=== PATIENT | female | born 1955 | race Caucasian/White ===

== ENCOUNTER 2017-01-01 06:12 | Day surgery (SDC) | payer OTHER ==
[2016-12-10 10:01] VITALS: Ht 160 cm; Wt 87.0 kg
--- NOTE | 2016-12-10 12:14 | PREOPHP ---
DATE OF ADMISSION: 12/11/2016 DATE OF ADMISSION: 12/11/2016 HISTORY OF PRESENT ILLNESS: This 61-year-old patient is admitted for elective cataract surgery of t he left eye. The patient has had progressive deterioration of vision in both eyes due to a combinat ion of proliferative diabetic retinopathy, its treatment, and secondary cataract formation. The pat sean has a history of insulin-dependent diabetes mellitus for the past 7 years, hypercholesterolemia , hypertension. The patient has undergone extensive retinal laser photocoagulation as well as intra vitreal Avastin injections in both eyes, and a vitrectomy in the left eye. CURRENT MEDICATIONS: 1. Atorvastatin. 2. Losartan. 3. Aspirin (discontinued 1 week prior to surgery). 4. Humalog insulin. 5. Alendronate. ALLERGIES: THERE ARE NO KNOWN ALLERGIES. PHYSICAL EXAMINATION: The visual acuity best corrected is 20/60 in the right eye and 20/400 in the left eye. Slit lamp examination reveals anterior cortical nuclear sclerotic and posterior subcapsul ar cataract, greater in the left eye than the right eye. Applanation tonometry is 19 mmHg in the ri ght eye and 20 mmHg in the left eye. Examination of the retina reveals a hazy view due to the catar act formation, recent retinal consultation visit noted that the proliferative diabetic retinopathy w as stable. DIAGNOSIS: Posterior subcapsular cataract, left eye. PLAN: Cataract extraction with lens implant, left eye. The risks and alternatives to the surgery a s well as the potential limitation of visual improvement due to the extensive diabetic retinopathy t herapy have been discussed with the patient. The patient understands this and agrees to proceed wit h surgery in hopes of improving ability to perform visual tasks leading to a greater ability to perf orm activities of daily living. Dictated By: ENID SWAN/FIORDALIZA Conf#: [id number] DID#: [id number]
--- NOTE | 2016-12-31 12:44 | PREOPHP ---
DATE OF ADMISSION: 01/01/2017 HISTORY OF PRESENT ILLNESS: This 61-year-old patient is admitted for elective cataract surgery of t he left eye. The patient has had decreased vision secondary to ocular complications of diabetic ret inopathy and has previously had retinal laser photocoagulation as well as intravitreal Avastin injec tions. The patient underwent a vitrectomy in the left eye 1 year ago which cause progression of the cataract in that eye. The patient's systemic history is positive for a 7-year history of insulin-d ependent diabetes mellitus. The patient also has systemic hypertension and hypercholesterolemia. CURRENT MEDICATIONS: Include: 1. Atorvastatin. 2. Losartan. 3. Aspirin (discontinued 1 week prior to surgery). 4. Alendronate. 5. Humalog Insulin. ALLERGIES: THERE ARE NO KNOWN ALLERGIES. PHYSICAL EXAMINATION: Visual acuity best corrected is 20/60 in the right eye and 20/400 in the left eye. Slit lamp examination reveals anterior cortical nuclear sclerotic and posterior subcapsular c ataract changes greater in the left eye than in the right eye. Applanation tonometry is 20 mmHg. E xamination of the retina in the right eye appears to show evidence of panretinal photocoagulation. Examination of the cataract in the left eye is obscured by the advanced cataract. DIAGNOSIS: Cataract, left eye. PLAN: Cataract extraction with lens implant, left eye. The risks and alternatives to the surgery h ave been discussed with the patient as well as the difficulty prognosticating visual outcome due to the prior extensive history of diabetic retinopathy and its treatment. The patient understands this and agrees to proceed with surgery in hopes of achieving some improvement of visual acuity. Dictated By: ENID SWAN/FIORDALIZA Conf#: [id number] DID#: [id number]
[~2017-01-01] VITALS: Ht 160 cm; Wt 87.0 kg
[2017-01-01] VITALS (9 sets, daily range): BP systolic 103–148; BP diastolic 47–70; PULSE 76–80; RESP 15–22
[~2017-01-01 06:12] MED LIST: CIPROFLOXACIN 0.3% 2.5 ML OPH OPER SCH; CYCLOPENTOLATE/PHENYLEPH 2 ML OPH OPER SCH; DICLOFENAC 0.1% 2.5 ML OPH OPER SCH; TROPICAMIDE 1% 2 ML OPH OPER SCH
[2017-01-01] MEDS ORDERED: CYCLOPENTOLATE/PHENYLEPH 2 ML OPH OPER SCH (07:00)
[2017-01-01] MEDS ORDERED: TROPICAMIDE 1% 2 ML OPH OPER SCH (07:00)
[2017-01-01] MEDS ORDERED: CIPROFLOXACIN 0.3% 2.5 ML OPH OPER SCH (07:00)
[2017-01-01] MEDS ORDERED: DICLOFENAC 0.1% 2.5 ML OPH OPER SCH (07:00)
[2017-01-01] MEDS ORDERED: NOVO7030 SC (08:17)
[2017-01-01] MEDS ORDERED: INSU100V3 IJ (08:18)
[2017-01-01] MEDS ORDERED: ASPI81TA3 PO (08:18)
[2017-01-01] MEDS ORDERED: PROPOFOL 20 ML ONE (08:55)
[2017-01-01] MEDS ORDERED: LIDOCAINE 2% (SDV) 5 ML INJ ONE (08:55)
[2017-01-01] MEDS ORDERED: MIDAZOLAM 1 MG/ML 2 ML INJ ONE (08:55)
[2017-01-01] MEDS ORDERED: HYPOGLYCEMIA PROTOCOL when Glucose is <70 mg/dL or symptomatic <90 mg/dL. XX ONE (09:00)
[2017-01-01] MEDS ORDERED: ONDANSETRON 4 MG INJ IV PRN (09:00)
[2017-01-01] MEDS ORDERED: OXYCODONE/ACETAMINOPHEN (5/325) TAB PO PRN (09:00)
[2017-01-01] MEDS ORDERED: FENTAnyl 50 MCG/ML VIAL IV PRN (09:00)
[2017-01-01] MEDS ORDERED: MEPERIDINE 25 MG INJ IV PRN (09:00)
[2017-01-01] MEDS ORDERED: DIPHENHYDRAMINE 50 MG INJ IV PRN (09:00)
[2017-01-01] MEDS ORDERED: INSULIN ASPART [NOVOLOG] 3 ML PEN SC ONE (09:00)
[2017-01-01] MEDS ORDERED: PROCHLORPERAZINE 10 MG INJ IV PRN (09:00)
[2017-01-01] MEDS ORDERED: METOCLOPRAMIDE 10 MG INJ IV PRN (09:00)
[2017-01-01] MEDS ORDERED: LIDOCAINE 4% (MPF) 5 ML INJ ONE (09:11)
[2017-01-01] MEDS ORDERED: CARBACHOL 0.01% 1.5 ML OPH INJ ONE (09:11)
[2017-01-01] MEDS ORDERED: EPINEPHrine 1 MG INJ ONE (09:12)
[2017-01-01] MEDS ORDERED: DEXAMETHASONE 4 MG/ML 1 ML INJ ONE (09:12)
[2017-01-01] MEDS ORDERED: GENTAMICIN 80 MG INJ ONE (09:12)
[2017-01-01] MEDS ORDERED: HYALURONATE/CHONDROITIN 1ML OPH INJ ONE (09:12)
[2017-01-01] MEDS ORDERED: CARBACHOL 0.01% 1.5 ML OPH INJ IO ONE (09:16)
[2017-01-01] MEDS ORDERED: DEXAMETHASONE 4 MG/ML 1 ML INJ INJ ONE (09:16)
[2017-01-01] MEDS ORDERED: HYALURONATE/CHONDROITIN 1ML OPH INJ IO ONE (09:16)
[2017-01-01] MEDS ORDERED: CEFAZOLIN 1 GM INJ INJ ONE (09:16)
[2017-01-01] MEDS ORDERED: ONDANSETRON 4 MG INJ ONE (09:49)
[2017-01-01] MEDS ORDERED: DEXTROSE 50% 50 ML SYRINGE IV PRN ×2 (10:00)
[2017-01-01] MEDS ORDERED: GLUCOSE GEL 15 GRAM TUBE PO PRN ×2 (10:00)
[2017-01-01] MEDS ORDERED: GLUCOSE GEL 15 GRAM TUBE BUCCAL PRN (10:00)
[2017-01-01] MEDS ORDERED: GLUCAGON 1 MG INJ IM PRN (10:00)
--- NOTE | 2017-01-01 12:02 | OPR ---
DATE OF OPERATION: 01/01/2017 PREOPERATIVE DIAGNOSIS: Cataract, left eye. POSTOPERATIVE DIAGNOSIS: Cataract, left eye. OPERATION PERFORMED: Cataract extraction with lens implant, left eye. SURGEON: Enid Lombardo MD ANESTHESIOLOGIST: Velvet Byrd MD ANESTHESIA: Local standby. PROCEDURE: The patient was brought to the operating room and placed on the table with an IV in plac e and the patient attached to an automated access systems technician. Oxygen was given via face mask. After some intravenous sedation was administered, local anesthesia was given using Xylocaine 2% with epinephrine, mixed with Marcaine 0.5%. This was given in a lid block and retrobulbar injection. The patient was then prepped and draped in the usual sterile manner. A wire lid speculum was inserted between the lids of the left eye. A Superblade was used to enter th e anterior chamber at the corneoscleral limbus at the 10:30 o'clock position. A separate incision wa s made using a 3.0-mm keratome which entered the corneoscleral junction at the 12 o'clock position. Through this 3-mm opening, an irrigating cystitome was introduced into the anterior chamber. The bradford mber was filled with Viscoat and an anterior capsulotomy was performed. Balanced salt solution was t hen used for hydrodissection of the lens. A phacoemulsification handpiece was then brought into the field and introduced into the anterior chamber. The lens nucleus was emulsified using a deep groove and cracking the nucleus into quadrants. Following this, each quadrant was aspirated and emulsified at the pupillary margin. After this was completed, the irrigation/aspiration handpiece was brought to the field, introduced i nto the posterior chamber, and the lens cortical material was removed. When this was completed, arturo tional Viscoat was injected into the anterior and posterior chambers. The 3-mm opening had its internal lips enlarged, and then the posterior chamber intraocular lens macie suring 23.0 diopters, model LI61AO (Bausch and [employer]) was then injected into the posterio r chamber using the lens injector system. After the leading haptic was introduced into the capsular bag and the lens optic was present in the center of the eye, the injector was removed and the traili ng haptic was grasped with non-toothed forceps and introduced into the capsular fold superiorly. A S inskey hook was then used to rotate the intraocular lens so that the lips were oriented in the horiz ontal meridian. One 10-0 nylon suture was placed across the wound. Prior to tying, the irrigation/aspiration handpiece was reintroduced into the anterior chamber to re move the Viscoat. Miochol was instilled to constrict the pupil, and then the 10-0 nylon suture was t ied. The ends were cut short and then the knot was buried. Then, 0.5 mL of dexamethasone and 0.5 mL of Ancef were injected into the sub-Tenon space in the infe rior fornix. Ciloxan drops were then placed on the surface of the eye. The speculum was removed and a patch was applied. The patient then left the operating room in satisfactory condition. Dictated By: ENID SWAN/FIORDALIZA Conf#: [id number] DID#: [id number]
== END 2017-01-01 11:00 | disposition home or self-care (01) ==
LOC: SDS 06:12
PROVIDERS: ATTEND Ophthalmology
DX: H25.12 Age-related nuclear cataract, left eye (principal); E11.3599 Type 2 diabetes mellitus with proliferative diabetic retinopathy without macular edema, unspecified eye; Z79.4 Long term (current) use of insulin; I10 Essential (primary) hypertension; E78.00 Pure hypercholesterolemia, unspecified; E78.5 Hyperlipidemia, unspecified; E66.9 Obesity, unspecified; Z68.34 Body mass index [BMI] 34.0-34.9, adult; M81.0 Age-related osteoporosis without current pathological fracture
CPT/HCPCS: 66984; 82962; J0171; J0690; J1100; J1580; J2250; J2405; V2632; Z7512; Z7610

== ENCOUNTER → 2017-09-26 | Outpatient (CLI) | payer OTHER ==
[~2017-09-26] MED LIST changes: +APRACLONIDINE 1% 0.1 ML OPH ONE; +ASPI81TA3 PO; -CIPROFLOXACIN 0.3% 2.5 ML OPH OPER SCH; -CYCLOPENTOLATE/PHENYLEPH 2 ML OPH OPER SCH; -DICLOFENAC 0.1% 2.5 ML OPH OPER SCH; +INSU100V3 IJ; +NOVO7030 SC; +OPHTHALMIC IRRIG SOLUTION 120 ML ONE; +PHENYLephrine 10% 5 ML OPH ONE; +PROPARACAINE 0.5% 15 ML OPH ONE; -TROPICAMIDE 1% 2 ML OPH OPER SCH; +TROPICAMIDE 1% 3 ML OPH ONE
== END | disposition home or self-care (01) ==
LOC: RAD 09:16
PROVIDERS: ATTEND Ophthalmology
DX: H26.9 Unspecified cataract (principal)
CPT/HCPCS: 66821; Z7610